=== PATIENT | female | born 1980 | race Caucasian/White ===

== ENCOUNTER 2018-06-10 19:55 | Emergency (ER) | payer SELFPAY ==
[2018-06-10 19:58] VITALS: BP 140/86; PULSE 72; PULSE 80; RESP 17; RESP 18; TEMP 36.9; O2SAT 98; O2SAT 99; BMI 39.1
--- NOTE | 2018-06-10 21:50 | ED.VISSUMM ---
- ER Visit Summary Date of Service: 06/10/18 Chief Complaint: Toothache History of Present Illness: The patient is a 38 F who presents with dental pain. She complains of right lower dental pain for about 3 days. She also reports cold sensitivity and jaw swelling. She has had prior dental extractions but has not had any problems with her teeth in quite some time. She denies fevers nausea vomiting chest pain shortness of breath. Physical Examination: Afebrile vitals are unremarkable Patient does have focal dental decay with tenderness on percussion of the right mandibular second premolar there is no focal abscess amenable to incision and drainage she does not have trismus the neck is supple without lymphadenopathy she has mild mandibular swelling Test Results: Not indicated Emergency Department Course and Treatment: Patient will be treated with naproxen and clindamycin, she has a penicillin allergy. She was given a list of dental resources in the area for follow-up. She understands return for new or worsening symptoms and was discharged home. Treatment Plan: [] Disposition: Discharge Impression: Odontalgia This note was generated with [employer] dictation software. It may contain incorrect words, spelling, and punctuation that were not noted in review of the chart prior to signing ED Disposition - Plan for ED Patient: Chief Complaint: Dental Referrals: NOT,DEFINED [Primary Care Provider] -
--- NOTE | 2018-06-10 21:51 | ED.DEP ---
ED Disposition - Plan for ED Patient: Chief Complaint: Dental Instructions: ED Tooth Pain Prescriptions: Clindamycin HCl [Cleocin] 300 mg PO Q8H #30 cap Naproxen [Naprosyn] 500 mg PO BID #14 tab Referrals: NOT,DEFINED [Primary Care Provider] -
[2018-06-10 22:07] VITALS: BP 136/78; PULSE 78; RESP 16; O2SAT 98
== END 2018-06-10 22:10 | disposition home or self-care (01) ==
PROVIDERS: Emergency Provider Emergency Medicine
DX: K08.89 Other specified disorders of teeth and supporting structures (principal); K02.9 Dental caries, unspecified; Z72.0 Tobacco use; Z88.0 Allergy status to penicillin
CPT/HCPCS: 99282

== ENCOUNTER 2021-05-03 17:47 | Emergency (ER) | payer MEDICAID, SELFPAY ==
[2021-05-03 17:49] VITALS: BP 149/87; PULSE 100; RESP 17; TEMP 37.2; O2SAT 97; BMI 43.7
--- NOTE | 2021-05-03 17:53 | RAD_ITS ---
STUDY: X-RAY - LEFT ANKLE REASON FOR EXAM: Female, 41 years old. INJURY TECHNIQUE: 3 view(s) of the ankle. COMPARISON: None. FINDINGS: No demonstrated acute fracture. 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 Normal visualized distal tibia and fibula. Normal medial and lateral malleoli. Normal tibiotalar articulation and ankle mortise. Normal visualized talus and calcaneus. The visualized subtalar, talonavicular, calcaneocuboid and tarsal articulations are normal. The soft tissue structures are unremarkable. RAD/Ankle min 3 Views IMPRESSION: No acute process Electronically Signed: Gary Jane MD at 18:49 EDT , Service support ,
--- NOTE | 2021-05-03 18:27 | EDS_ITS ---
HPI History of Present Illness HPI Narrative: Patient presents with injury to her left ankle. She states prior to arrival, she was mowing the lawn and trying to go up a big hill. She was walking backwards and twisted her ankle. It caused her to fall onto her left knee. She did not fall and hit her head. She denies any neck pain or other injury. She was able to get up after a few minutes but now has pain with standing and walking. She complains of swelling on the lateral aspect of her left ankle and on the top of her left foot. Chief Complaint: Lower Extremity Injury [facility] Medical History (Updated 05/03/21 @ 19:02 by Xu Mallory MD) Depression Migraine Home Medications topiramate 50 mg PO QHS 05/03/21 [History Last Taken Unknown] venlafaxine 37.5 mg PO DAILY 05/03/21 [History Last Taken Unknown] Allergy/AdvReac Type Severity Reaction Status Date / Time Penicillins [PCN] Allergy Other Verified 05/03/21 17:48 Social History Smoking Status: Current some day smoker tobacco type: e-cigarettes ROS ROS ED ROS Narrative Constitutional: No fever, no chills. HEENT: No sore throat. No neck pain. No loss of vision. No rhinorrhea. No hitting of head, no loss of consciousness. Cardiovascular: No chest pain. No palpitations. No pedal edema. Respiratory: No cough, no shortness of breath. Abdominal: No abdominal pain. No nausea. No vomiting. Genitourinary: No dysuria. No hematuria. Musculoskeletal: No myalgias. Left lateral ankle pain and swelling. Neurologic: No headaches. No dizziness. No lightheadedness. Skin: No rash. No change in color. Psychiatric: No depression. No anxiety. EXAM Physical Exam Narrative Exam Narrative: Afebrile. Vital signs noted. HEENT: Normocephalic. Atraumatic. PERRL, EOMI. Neck soft and supple. No point tenderness or step off. Cardiovascular: Regular rate and rhythm. No murmurs, rubs, or gallops appreciated. Respiratory: No tachypnea. Lungs clear to auscultation bilaterally. Gastrointestinal: Abdomen soft, nontender, with normoactive bowel sounds. No rebound or guarding. Neurological: Awake. Alert. Nonfocal, nonlateralizing. Skin: No rash. Normal color. No pallor. Musculoskeletal: No pedal edema. Inspection of the left ankle does reveal mild tenderness and swelling over the left lateral malleolus and anterior talofibular ligament area. She has a palpable dorsalis pedis pulse. No palpable Achilles tendon deficit. Positive extension and flexion mechanism of left knee. No proximal fibular head tenderness. Const Vital Signs: 05/03/21 17:49 Temperature 99.0 F Temperature Source Temporal Pulse Rate 100 Respiratory Rate 17 Blood Pressure 149/87 H Blood Pressure Mean 107 Pulse Ox 97 Oxygen Delivery Method Room Air MDM MDM MDM Narrative Medical decision making narrative: Patient declined oral analgesics here in the emergency department. She was given an ice pack for comfort. In review of her left ankle x-rays which were obtained per nursing protocol, I see no evidence of fracture. It was also read by the radiologist as normal. She will be placed in an Aircast and given crutches. She will continue ice and elevation at home and follow-up with her primary care physician. She will take [id number] analgesics. I feel she be discharged safely home with follow-up. Return instructions to the emergency department were reviewed. Disposition is discharged home in stable condition. Radiography X-Ray: Read by ED Physician, Read by Radiologist and No Fracture Diagnostic Testing: Radiology Impression Ankle X-Ray 05/03/21 17:53 IMPRESSION: No acute process Electronically Signed: Gary Jane MD at 18:49 EDT , Service support , Discharge Plan Triage Chief Complaint: Lower Extremity Injury ED Provider: Xu Mallory Dx/Rx/DC Orders Clinical Impression: Fall, Left ankle sprain Instructions: ED Ankle Sprain (Adult) Prescriptions: No Action venlafaxine 37.5 mg capsule,extended release 24hr 37.5 mg PO DAILY RF: 0 topiramate 50 mg tablet 50 mg PO QHS RF: 0 Stand Alone Forms: ED Work / School Excuse Primary Care Provider: Kleber Wiseman Referrals: Kleber Wiseman MD [Primary Care Provider] - 05/10/21 Disposition Disposition: Home, Self Care
[2021-05-03 19:19] VITALS: RESP 16
== END 2021-05-03 19:20 | disposition home or self-care (01) ==
PROVIDERS: Emergency Provider Emergency Medicine; PCP Family Medicine
DX: S93.402A Sprain of unspecified ligament of left ankle, initial encounter (principal); Y93.01 Activity, walking, marching and hiking; F32.9 Major depressive disorder, single episode, unspecified; F17.210 Nicotine dependence, cigarettes, uncomplicated; Z79.899 Other long term (current) drug therapy; W01.0XXA Fall on same level from slipping, tripping and stumbling without subsequent striking against object, initial encounter; Y92.828 Other wilderness area as the place of occurrence of the external cause; Y99.8 Other external cause status
CPT/HCPCS: 73610; 99284